=== PATIENT | male | born 1955 | race Caucasian/White ===

== ENCOUNTER → 2017-12-28 | Outpatient (CLI) | payer OTHER ==
[~2017-12-28] MED LIST: ALTACE10 MG PO; ASPIRIN81 M2 PO; ATORVASTATIN CA40 MG PO; CARDIOSTEROL C1 EACH PO; CENTRUM SILVER1 EAC4 PO; COREG25 MG PO; FLEXERIL PO; METFORMIN HCL500 MG PO; NEURONTIN 300300 M1 PO; OMEGA 3 1,0001 EACH PO; PREDNISONE 20 M20 MG PO; RANEXA500 MG PO; TRAMADOL 50 MG50 MG PO
== END ==
LOC: MRI 14:10
DX: M47.896 Other spondylosis, lumbar region (principal); M48.07 Spinal stenosis, lumbosacral region; M51.26 Other intervertebral disc displacement, lumbar region

== ENCOUNTER → 2017-12-29 | Outpatient (CLI) | payer OTHER ==
[~2017-12-29] VITALS: Ht 185.4 cm; Wt 102.1 kg
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
[2017-12-29 11:17] VITALS: BP 160/99
[2017-12-29 11:43] VITALS: BP 160/99
== END | disposition home or self-care (01) ==
LOC: PAIN 10:46
DX: M54.16 Radiculopathy, lumbar region (principal); I10 Essential (primary) hypertension; E11.9 Type 2 diabetes mellitus without complications; I25.10 Atherosclerotic heart disease of native coronary artery without angina pectoris; M19.049 Primary osteoarthritis, unspecified hand; E78.00 Pure hypercholesterolemia, unspecified; K21.0 Gastro-esophageal reflux disease with esophagitis; Z98.890 Other specified postprocedural states; Z79.899 Other long term (current) drug therapy; Z79.891 Long term (current) use of opiate analgesic; Z79.82 Long term (current) use of aspirin; Z95.5 Presence of coronary angioplasty implant and graft

== ENCOUNTER → 2018-06-22 | Outpatient (CLI) | payer OTHER ==
[~2018-06-22] VITALS: Ht 182.9 cm; Wt 99.6 kg
[~2018-06-22] MED LIST changes: +ALEVE220 MG PO
[2018-06-22 10:13] VITALS: BP 115/86
== END | disposition home or self-care (01) ==
LOC: PAIN 07:02
DX: M54.16 Radiculopathy, lumbar region (principal); Z79.82 Long term (current) use of aspirin; Z79.899 Other long term (current) drug therapy; Z79.84 Long term (current) use of oral hypoglycemic drugs; Z87.891 Personal history of nicotine dependence

== ENCOUNTER 2019-09-20 09:58 | Day surgery (SDC) | payer OTHER ==
[~2019-09-20] VITALS: Ht 182.9 cm; Wt 97.5 kg
--- NOTE | ~2019-09-20 | O ---
[facility] [place] [address] [address] [place] [address] OPERATIVE REPORT Name: BASILIO DAVIDSON Room #: DEP [facility] M.R.#: [id number] Admission: 09/20/19 Attend Phys: Kel Pa MD Discharge: 09/20/19 Date of : 55 Report #: [id number] THIS REPORT FOR: //name// CC: Kel Yanes MD DATE OF SERVICE: 09/20/2019 PREOPERATIVE DIAGNOSIS: Incarcerated umbilical hernia. POSTOPERATIVE DIAGNOSIS: Incarcerated umbilical hernia with omentum stuck in the hernia sac chronically. PROCEDURE PERFORMED: Open repair of incarcerated umbilical hernia with reduction of omentum and insertion of a medium Ventralex patch. SURGEON: Kel Pa MD. ANESTHESIA: General anesthesia. COMPLICATIONS: None. ESTIMATED BLOOD LOSS: 5 mL. PROCEDURE NOTE: With the patient under general anesthesia, abdomen was prepped and draped in the sterile fashion. Timeout was performed. A 0.25% Marcaine was used to anesthetize the skin. A curvilinear incision was made infraumbilically, about 4 cm in length. After incising through the skin and subcutaneous tissue, a thin wall hernia sac was found. The hernia sac was free from the overlying skin of the umbilicus. The fascia was dissected down to the fascia level. The hernia sac was quite thin and was opened, and omental fat was identified inside the hernia sac. The fascia defect was too small to push the fat back in very easily. There was no adhesion of the omentum to the hernia sac. On the left side of the fascia defect, I did enlarge the fascia opening. Once this was performed, the fascia was loosened and the omentum was able to be reduced. The hernia sac was then trimmed down to close the fascia. Hernia sac was then sewn together with 4-0 PDS. Properitoneal dissection was then performed. This was performed with cautery and blunt dissection, pushing the peritoneum off the wall. Properitoneal space was then able to be created this way. Once this properitoneal space was opened up, a medium size Ventralex patch was inserted under the fascia defect, and the Ventralex patch was noted to be opened up thoroughly. The strap was used to ensure that the mesh had opened well. Irrigation was performed prior to placing of the patch. The fascia was then closed with 0-Prolene in horizontal mattress fashion x 2. Each of the stitch incorporated the strap of the patch. Fascia was then closed with the Prolene [facility] [address] [place] [address] OPERATIVE REPORT Name: BASILIO DAVIDSON Room #: DEP [facility].#: [id number] Admission: 09/20/19 Attend Phys: Kel Pa MD Discharge: 09/20/19 Date of : 55 Report #: [id number] suture, incorporating the strap. The strap was then trimmed at the fascia level. Skin of the umbilicus was then sewn down to the fascia using 4-0 PDS. Subcutaneous tissue was partially reapproximated with 4-0 PDS. Skin was then closed with 5-0 PDS in a running fashion. Dermabond was applied. A 4 x 4 was then placed inside the umbilicus to apply some pressure, keeping the skin down. A couple of more 4 x 4s were placed on the surface and then the dressing was covered by medium Op-Site. The patient tolerated the procedure well. By: [id number] Kel Pa MD /nt
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
[~2019-09-20 09:58] MED LIST changes: -ATORVASTATIN CA40 MG PO; +CARDIO PO; +JARDIANCE10 MG PO; +LIPITOR40 MG PO; +[UNRECOGNIZED DRUG - OTHER] PO
[2019-09-20 11:14] VITALS: BP 114/72
[2019-09-20] MEDS ORDERED: NORCO 5-325 TA1 EAC1 PO (13:51)
[2019-09-20 14:04] VITALS: BP 114/72
--- NOTE | 2019-09-21 08:29 | EKG ---
[place] [address] [place] [address] ELECTROCARDIOGRAM REPORT Name: BASILIO DAVIDSON Room #: DEP [facility]..#: [id number] Admission: 09/20/19 Attend Phys: Kel Pa MD Discharge: 09/20/19 Date of : 55 Report #: [id number] THIS REPORT FOR: //name// [facility] Test Date: 2019-09-20 Test Time: 10:58:11 Pat Name: BASILIO DAVIDSON Department: Room: 150 9 Gender: M Ticket Attendant: carmelita : 1955 Requested By: Kel Pa Order Number: [id number] MD: Bertrand Fairchild Measurements Intervals [place] Rate: 53 P: 19 AK: 160 QRS: 4 QRSD: 91 T: -5 QT: 391 QTc: 367 Interpretive Statements Sinus bradycardia Nonspecific ST and T wave abnormality Compared to ECG 07/31/2000 06:46:20 ST and T wave abnormality is less pronounced Electronically Signed On 09-21-2019 8:28:48 PREPARATION CENTER COORDINATOR by Bertrand Fairchild [email or web address] <ELECTRONICALLY SIGNED> By: Bertrand Fairchild MD, [facility] 09/21/19 0828 1058 1058 Bertrand Fairchild MD, [facility] /EPI
== END 2019-09-20 14:40 | disposition home or self-care (01) ==
LOC: OR 09:58 → TBA 10:03 → OR 14:40
DX: K42.0 Umbilical hernia with obstruction, without gangrene (principal); I10 Essential (primary) hypertension; E78.00 Pure hypercholesterolemia, unspecified; E11.9 Type 2 diabetes mellitus without complications; Z98.890 Other specified postprocedural states; Z79.899 Other long term (current) drug therapy; Z98.41 Cataract extraction status, right eye; Z87.891 Personal history of nicotine dependence; Z98.42 Cataract extraction status, left eye; Z79.82 Long term (current) use of aspirin
CPT/HCPCS: 50010; 50101; 50130; 50386; 50403; 56524; 56525; 62110; 62900; 70005